=== PATIENT | female | born 1985 | race African-American/Black ===

== ENCOUNTER 2016-07-10 19:29 | Emergency (ER) | payer OTHER ==
[~2016-07-10] VITALS: Ht 175.3 cm; Wt 100.0 kg
[2016-07-10] MEDS ORDERED: MULT1CAP32 PO (19:42)
[2016-07-10] MEDS ORDERED: HYDR25TA PO (19:42)
[2016-07-10] MEDS ORDERED: VITAD400 PO (19:42)
[2016-07-10] MEDS ORDERED: LISI-660 PO (19:42)
[2016-07-10] MEDS ORDERED: MethylPREDNISolone SOD SUCC 125 MG/2 ML VIAL IVP ONE (20:45)
[2016-07-10] MEDS ORDERED: DEXAMETHASONE SOD PHOS 4 MG/ML 5 ML VIAL IM ONE (21:00)
[2016-07-11 00:36] VITALS: BP 130/77
== END 2016-07-11 00:50 | disposition home or self-care (01) ==
LOC: EMS 19:30
DX: J02.9 Acute pharyngitis, unspecified (principal); I10 Essential (primary) hypertension; Z91.041 Radiographic dye allergy status
CPT/HCPCS: 70490; 96372; 99284; J1100